=== PATIENT | female | born 1975 | race Hispanic/Latino ===

== ENCOUNTER 2018-06-12 12:06 | Emergency (ER) | payer BC ==
[2018-06-12 12:14] VITALS: RESP 18; O2SAT 100
--- NOTE | 2018-06-12 12:56 | C.PDOC ---
History Of Present Illness <Trinh Abad - Last Filed: 06/12/18 13:11> <Johanny Alejandre - Last Filed: 06/15/18 13:28> 42-year-old female, presents to the emergency department with complaints of left flank pain ongoing for the past four days. Patient states she had one episode of hematuria four days ago, which resolved. Patient states pain worsened yesterday. States she called Dr Barber who sent pt to ED for evaluation. Patient took Naproxyn at home with moderate relief. She denies any pain at this time. No nausea/vomiting, fever, dizziness, vaginal bleeding/ discharge or any other associated symptoms. LMP 7/8. (Trinh Abad) History Per: Patient History/Exam Limitations: no limitations Current Symptoms Are (Timing): Still Present <Trinh Abad - Last Filed: 06/12/18 13:11> <Johanny Alejandre - Last Filed: 06/15/18 13:28> Time Seen by Provider: 06/12/18 12:26 Chief Complaint (Nursing): Back Pain Past Medical History Reviewed: Historical Data, Nursing Documentation, Vital Signs Family History: States: No Known Family Hx - Social History Hx Alcohol Use: No Hx Substance Use: No <Trinh Abad - Last Filed: 06/12/18 13:11> Vital Signs: Last Vital Signs Temp 99.8 F H 06/12/18 14:53 Pulse 91 H 06/12/18 14:53 Resp 18 06/12/18 14:53 BP 132/84 06/12/18 14:53 Pulse Ox 100 06/12/18 14:53 Review Of Systems Constitutional: Negative for: Fever, Chills Cardiovascular: Negative for: Chest Pain, Palpitations Respiratory: Negative for: Shortness of Breath Gastrointestinal: Positive for: Abdominal Pain. Negative for: Nausea, Vomiting Genitourinary: Positive for: Hematuria. Negative for: Dysuria, Vaginal Discharge, Vaginal Bleeding Musculoskeletal: Positive for: Back Pain Skin: Negative for: Rash Neurological: Negative for: Weakness, Numbness, Headache, Dizziness <Trinh Abad - Last Filed: 06/12/18 13:11> Physical Exam - Physical Exam Appears: Non-toxic, No Acute Distress Skin: Normal Color, Warm, Dry, No Rash Head: Atraumatic, Normacephalic Eye(s): bilateral: Normal Inspection, PERRL, EOMI Nose: Normal Oral Mucosa: Moist Lips: Normal Appearing Neck: Normal ROM Chest: Symmetrical Cardiovascular: Rhythm Regular, No Murmur Respiratory: Normal Breath Sounds, No Accessory Muscle Use Gastrointestinal/Abdominal: Soft, No Tenderness Back: No CVA Tenderness Extremity: Normal ROM, No Deformity, No Swelling Neurological/Psych: Oriented x3, Normal Speech <Trinh Abad - Last Filed: 06/12/18 13:11> ED Course And Treatment O2 Sat by Pulse Oximetry: 100 (RA) Pulse Ox Interpretation: Normal <Trinh Abad - Last Filed: 06/12/18 13:11> - Laboratory Results Result Diagrams: 06/12/18 13:11 06/12/18 13:11 <PiliJohanny mcfarlane - Last Filed: 06/15/18 13:28> Disposition - Disposition Disposition Time: 13:00 <Trinh Abad - Last Filed: 06/12/18 13:11> Counseled Patient/Family Regarding: Studies Performed, Diagnosis, Need For Followup, Rx Given - Disposition Disposition Time: 14:50 <Johanny Alejandre - Last Filed: 06/15/18 13:28> - Disposition Referrals: Andrés Barber MD [Staff Provider] - Disposition: HOME/ ROUTINE Condition: STABLE Additional Instructions: FOLLOW UP WITH DR BARBER IN 1-2 DAYS USE ANTIBIOTICS DRINK PLENTY OF FLUIDS RETURN TO ER IF SYMPTOMS WORSEN Prescriptions: Cephalexin [Keflex] 500 mg PO BID #14 capsule Instructions: Urinary Tract Infection, Adult (DC) Forms: [employer] (Kenyan) Print Language: SPANISH - Clinical Impression Clinical Impression: UTI (urinary tract infection), Pyelonephritis - Scribe Statement The provider has reviewed the documentation as recorded by the Scribe (nErique Henson) <Trinh Abad - Last Filed: 06/12/18 13:11> <Johanny Alejandre - Last Filed: 06/15/18 13:28> - Scribe Statement All medical record entries made by the Scribe were at my direction and personally dictated by me. I have reviewed the chart and agree that the record accurately reflects my personal performance of the history, physical exam, medical decision making, and the department course for this patient. I have also personally directed, reviewed, and agree with the discharge instructions and disposition. (Trinh Abad) Physician Patient Turnover Patient Signed Over To: Johanny Alejandre Handoff Comments: FU LABS, CT, XRAY, DISPO <Trinh Abad - Last Filed: 06/12/18 13:11> Addendum <Trinh Abad - Last Filed: 06/12/18 13:11> <Johanny Alejandre - Last Filed: 06/15/18 13:28> Addendum: 06/12/18 14:09 Accession No. : [id number] Patient Name / ID : LEXI CAUSEY / [id number] Exam Date : 06/12/2018 13:35:59 ( Approved ) Study Comment : Sex / Age : F / 42Y Creator : Alison Gomes Dictator : Harsha Paul MD Nursing Project Coordinator : Story Editor : Harsha Paul MD Approver2 : Report Date : 06/12/2018 13:48:17 My Comment : Date of service: 06/12/2018 PROCEDURE: CT Abdomen and Pelvis without intravenous contrast HISTORY: R FLANK PAIN COMPARISON: None. TECHNIQUE: Contiguous images were obtained from the domes of the diaphragms to the upper thighs without the administration of intravenous contrast. Oral contrast was not administered. Radiation dose: Total exam DLP = 1036 mGy-cm. This CT exam was performed using one or more of the following dose reduction techniques: Automated exposure control, adjustment of the mA and/or kV according to patient size, and/or use of iterative reconstruction technique. FINDINGS: LOWER THORAX: Unremarkable. LIVER: Hepatic steatosis. No gross lesion or ductal dilatation. GALLBLADDER AND BILE DUCTS: Unremarkable. PANCREAS: Unremarkable. No gross lesion or ductal dilatation. SPLEEN: Unremarkable. ADRENALS: Unremarkable. No mass. KIDNEYS AND URETERS: Unremarkable. No hydronephrosis. No solid mass. VASCULATURE: Unremarkable. No aortic aneurysm. BOWEL: Unremarkable. No obstruction. No gross mural thickening. APPENDIX: Unremarkable. Normal appendix. PERITONEUM: Unremarkable. No free fluid. No free air. LYMPH NODES: Unremarkable. No enlarged lymph nodes. BLADDER: Unremarkable. REPRODUCTIVE: Unremarkable. BONES: No acute fracture. OTHER FINDINGS: None. IMPRESSION: No obstructive uropathy or evidence of recently passed urinary calculus. No acute abdominal pelvic pathology. 06/12/18 14:20 Patient resting comfortably, c/o mild suprapubic discomfort, no current flank pain. CT scan (-) for kidney stones. UA (+) for UTI. Symptoms likely UTI/ cystitis vs pyelonephritis. Patient given IV rocephin dose in ED, will get antibiotics to go home. Patient instructed to follow up with her urologist within 1-2 days. She understands she should return to ED if symptoms worsen. (Johanny Alejandre)
[2018-06-12 13:16] LABS: BASO # 0.1 K/uL (0.0-0.2); BASO % 0.6 % (0.0-2.0); EOS % 0.1 % (0.0-4.0); HEMOGLOBIN 13.7 g/dL (11.0-16.0); LYMPH # 0.8 K/uL (1.0-4.3); LYMPH % 7.6 % (20.0-40.0); MEAN CELL VOLUME 93.2 fL (81.0-99.0); MEAN CORPUSCULAR HEMOGLOBIN 32.9 pg (27.0-31.0); MEAN CORPUSCULAR HGB CONC 35.3 g/dL (33.0-37.0); MEAN PLATELET VOLUME 7.5 fL (7.2-11.7); MONO # 0.5 K/uL (0.0-0.8); MONO % 5.5 % (0.0-10.0); NEUT # 8.5 K/uL (1.8-7.0); NEUT % 86.2 % (50.0-75.0); PLATELET COUNT 214 K/uL (130-400); RBC 4.17 Mil/uL (3.80-5.20); RED CELL DISTRIBUTION WIDTH 13.3 % (11.5-14.5); WHITE BLOOD COUNT 9.9 K/uL (4.8-10.8)
[2018-06-12 13:40] LABS: BLOOD UREA NITROGEN 8 mg/dL (7-17); CALCIUM 9.9 mg/dl (8.6-10.4); GFR AFRICAN-AMERICAN > 60; GFR NON-AFRICAN AMERICAN > 60
[2018-06-12 13:43] LABS: BANDS 1 % (0-2); LYMPHOCYTE 3 % (20-40); MONOCYTE 3 % (0-10); NEUTROPHIL 93 % (50-75); TOTAL CELLS COUNTED 100
[2018-06-12 13:44] LABS: PLATELET ESTIMATE NORMAL (NORMAL)
[2018-06-12 13:48] LABS: SQUAMOUS EPITHIAL 10 /hpf (0-5); URINE BACTERIA OCC (<OCC); URINE BILIRUBIN NEGATIVE (NEGATIVE); URINE BLOOD NEGATIVE (NEGATIVE); URINE CLARITY Hazy (Clear); URINE COLOR Amber (YELLOW); URINE GLUCOSE (UA) NORMAL (Normal); URINE LEUKOCYTE ESTERASE 3+ Leu/uL (Negative); URINE PROTEIN 2+ mg/dL (NEGATIVE); URINE UROBILINOGEN NORMAL mg/dL (0.2-1.0)
--- NOTE | 2018-06-12 14:02 | CT ---
Date of service: 06/12/2018 PROCEDURE: CT Abdomen and Pelvis without intravenous contrast HISTORY: R FLANK PAIN COMPARISON: None. TECHNIQUE: Contiguous images were obtained from the domes of the diaphragms to the upper thighs without the administration of intravenous contrast. Oral contrast was not administered. Radiation dose: Total exam DLP = 1036 mGy-cm. This CT exam was performed using one or more of the following dose reduction techniques: Automated exposure control, adjustment of the mA and/or kV according to patient size, and/or use of iterative reconstruction technique. FINDINGS: LOWER THORAX: Unremarkable. LIVER: Hepatic steatosis. No gross lesion or ductal dilatation. GALLBLADDER AND BILE DUCTS: Unremarkable. PANCREAS: Unremarkable. No gross lesion or ductal dilatation. SPLEEN: Unremarkable. ADRENALS: Unremarkable. No mass. KIDNEYS AND URETERS: Unremarkable. No hydronephrosis. No solid mass. VASCULATURE: Unremarkable. No aortic aneurysm. BOWEL: Unremarkable. No obstruction. No gross mural thickening. APPENDIX: Unremarkable. Normal appendix. PERITONEUM: Unremarkable. No free fluid. No free air. LYMPH NODES: Unremarkable. No enlarged lymph nodes. BLADDER: Unremarkable. REPRODUCTIVE: Unremarkable. BONES: No acute fracture. OTHER FINDINGS: None. IMPRESSION: No obstructive uropathy or evidence of recently passed urinary calculus. No acute abdominal pelvic pathology.
--- NOTE | 2018-06-12 14:03 | RAD ---
Date of service: 06/12/2018 HISTORY: R FLANK PAIN COMPARISON: No prior. FINDINGS: BOWEL: Normal. No obstruction. No free air. BONES: Normal. OTHER FINDINGS: 1.3 x 0.8 cm calcification in the left mid abdomen. IMPRESSION: No active disease.
[2018-06-12] MEDS ORDERED: cefTRIAXone IV 1 gm in Dextros 50 ML IV STA (14:20)
[2018-06-12] MEDS ORDERED: cefTRIAXone IV 1 gm in Dextros 50 ML IVPB ONE (14:33)
[2018-06-12 14:54] VITALS: BP 132/84; PULSE 91; TEMP 99.8
== END 2018-06-12 15:09 | disposition home or self-care (01) ==
LOC: C.ER 12:06
DX: N12 Tubulo-interstitial nephritis, not specified as acute or chronic (principal); N39.0 Urinary tract infection, site not specified
CPT/HCPCS: 74018; 74176; 80048; 81001; 85025; 87086; 87181; 96374; 99285; J0696